=== PATIENT | female | born 1970 | race Caucasian/White ===

== ENCOUNTER 2017-08-03 10:25 | Observation (INO) | payer OTHER ==
[~2017-08-03] VITALS: Ht 157.5 cm; Wt 86.2 kg
[~2017-08-03 10:25] MED LIST: CLON1 PO; Cyclobenzaprine5 MG; DULO60; GABA300 PO; HYDR-86; IBUP600 PO; Keflex500 MG PO; LAMO25 PO; OXYACE5T PO; PANT40 PO; PRAZ2 PO; QUET25 PO; SERT100; SULTRIDS PO
[2017-08-03] MEDS ORDERED: LORA1 PO (10:59)
[2017-08-03] MEDS ORDERED: SERT100 PO (10:59)
[2017-08-03] MEDS ORDERED: TRAZ150T57 (10:59)
[2017-08-03] MEDS ORDERED: UROCIT-K15 MEQ PO (10:59)
[2017-08-03] MEDS ORDERED: FAMO20 PO (11:00)
[2017-08-03] MEDS ORDERED: HYDCHL12.5 PO (11:00)
[2017-08-03] MEDS ORDERED: ALBU90OI6 INH (11:01)
[2017-08-03] MEDS ORDERED: BUDE10.22 INH (11:01)
[2017-08-03 11:17] LABS: Bilirubin, Urine Neg (Neg); Blood, Urine 1+ (Neg); Glucose Qualitative, Urine Neg (Neg); Ketones, Urine Neg (Neg); Leukocyte Esterase, Urine 1+ (Neg); Nitrite, Urine Neg (Neg); Protein, Urine 1+ (Neg); Urobilinogen, Urine NORM (Normal)
[2017-08-03 11:24] LABS: Appearance, Urine Cloudy (Clear); Color, Urine Yellow (P-Yellow)
[2017-08-03 11:26] LABS: Bacteria Many /hpf; Red Blood Cells, Urine 0-2 /hpf (0-2); Squamous Epithelial Cells Many /hpf (Few)
[2017-08-03 11:32] LABS: BASOPHILS ABSOLUTE AUTO 0.05 K/mm3 (0.00-0.23); BASOPHILS PERCENT AUTO 1 % (0-2); EOSINOPHILS ABSOLUTE AUTO 0.11 K/mm3 (0.00-0.68); EOSINOPHILS PERCENT AUTO 1 % (0-6); Hematocrit 33.8 % (33.0-51.0); Hemoglobin 10.9 g/dL (11.5-16.0); IMMATURE GRAN ABSOLUTE AUTO 0.03 K/mm3 (0.00-0.10); IMMATURE GRAN PERCENT AUTO 0 % (0-1); LYMPHOCYTES PERCENT AUTO 24 % (21-46); MONOCYTES ABSOLUTE AUTO 0.47 K/mm3 (0.16-1.47); MONOCYTES PERCENT AUTO 6 % (4-13); Mean Corpuscular HGB 26.6 pg (26.0-34.0); Mean Corpuscular HGB Conc 32.2 g/dL (31.5-36.5); Mean Corpuscular Volume 82 fL (80-100); Mean Platelet Volume 9.4 fL (9.1-12.4); NEUTROPHILS ABSOLUTE AUTO 5.66 K/mm3 (1.96-9.15); NEUTROPHILS PERCENT AUTO 68 % (41-73); Platelet Count 361 K/mm3 (150-400); RDW Coefficient Variation 14.6 % (11.7-14.2); RDW Standard Deviation 43.3 fL (35.1-46.3); White Blood Cell Count 8.32 K/mm3 (4.00-11.30)
[2017-08-03 11:59] LABS: U Amphetamine Screen Not Detected; U Barbituate Screen Not Detected; U Benzodiazapine Screen DETECTED; U Buprenorphine Screen Not Detected; U Cannabinoids Screen Not Detected; U Cocaine Screen Not Detected; U Methadone Screen Not Detected; U Methamphetamine Screen Not Detected; U Opiates Screen DETECTED; U Oxycodone Screen Not Detected; U Phencyclidine Screen Not Detected; U Propoxyphene Screen Not Detected
[2017-08-03 12:09] LABS: Acetaminophen, Random <2.0 ug/mL (10.0-30.0); Alanine Aminotransfer (ALT/SGP 27 U/L (12-78); Albumin, Blood 3.6 g/dL (3.4-5.0); Alk Phos 102 U/L (50-136); Anion Gap 8 mmol/L (6-16); Aspartate Aminotrans (AST/SGOT 20 U/L (12-37); Bilirubin, Total 0.1 mg/dL (0.1-1.0); Blood Urea Nitrogen 14 mg/dL (8-24); Bun/Creatinine Ratio 15.2 (12.0-20.0); CO2, Blood 24 mmol/L (21-32); Calcium, Blood 8.8 mg/dL (8.5-10.1); Chloride, Blood 108 mmol/L (98-108); Creatinine, Blood 0.92 mg/dL (0.40-1.00); Ethanol (Alcohol), Blood, Med <3 mg/dL; Globulin, Blood 3.5 g/dL (2.2-4.0); Glomerular Filtration Rate >60 (60-); Glucose, Blood 94 mg/dL (70-99); Potassium, Blood 4.1 mmol/L (3.5-5.5); Salicylate <1.7 mg/dL (2.8-20.0); Sodium, Blood 140 mmol/L (136-145); Total Protein, Blood 7.1 g/dL (6.4-8.2)
[2017-08-03 12:13] LABS: Thyroid Stimulating Hormone 0.969 uIU/mL (0.360-4.800); Thyroxine (T4) 5.7 ug/dL (4.8-13.9)
[2017-08-04] MEDS ORDERED: GABA600 PO (17:57)
[2017-08-04] MEDS ORDERED: IBUP600 PO ×2 (18:01→19:18)
[2017-08-04] MEDS ORDERED: LAMO100 PO ×2 (18:02→19:16)
[2017-08-04] MEDS ORDERED: LORA.5 PO (18:03)
[2017-08-04] MEDS ORDERED: TRAZ150T57 (19:10)
[2017-08-04] MEDS ORDERED: SERT100 PO (19:10)
[2017-08-04] MEDS ORDERED: LORA1 PO (19:11)
[2017-08-04] MEDS ORDERED: Ventolin5 MG/1 ML INH (19:13)
[2017-08-04] MEDS ORDERED: HYDCHL12.5 PO (19:13)
[2017-08-04] MEDS ORDERED: BUDE10.22 INH (19:14)
[2017-08-04] MEDS ORDERED: PRAZ2 PO (19:14)
[2017-08-04] MEDS ORDERED: Cyclobenzaprine5 MG PO (19:15)
[2017-08-04] MEDS ORDERED: PANT40 PO (19:17)
[2017-08-04] MEDS ORDERED: GABA300 PO (19:17)
[2017-08-04] MEDS ORDERED: Norco 7.5-3251 EACH PO (19:18)
[2018-01-11] MEDS ORDERED: NAPR220 (12:21)
[2018-01-11] MEDS ORDERED: CLON.5 (12:22)
[2018-01-11] MEDS ORDERED: VENL150ER (12:23)
[2018-01-11] MEDS ORDERED: ALBU90OI (12:23)
== END 2017-08-05 12:00 | disposition home or self-care (01) ==
LOC: ER 10:25 → EOR 10:26
PROVIDERS: Emergency Medicine
DX: F43.10 Post-traumatic stress disorder, unspecified (principal); F40.00 Agoraphobia, unspecified; F42.9 Obsessive-compulsive disorder, unspecified; F31.9 Bipolar disorder, unspecified; F41.9 Anxiety disorder, unspecified; J45.909 Unspecified asthma, uncomplicated; M19.90 Unspecified osteoarthritis, unspecified site; M79.7 Fibromyalgia; K21.9 Gastro-esophageal reflux disease without esophagitis; G43.909 Migraine, unspecified, not intractable, without status migrainosus; Z79.899 Other long term (current) drug therapy; Z88.0 Allergy status to penicillin; Z88.8 Allergy status to other drugs, medicaments and biological substances
CPT/HCPCS: 70450; 80053; 81001; 81025; 84436; 84443; 85025; 86592; 87086; 99285; G0378; G0480

== ENCOUNTER → 2018-08-04 | Outpatient (CLI) | payer OTHER ==
[~2018-08-04] MED LIST changes: +ALBU90OI; +ALBU90OI6 INH; +BUDE10.22 INH; +CLON.5; +Cyclobenzaprine5 MG PO; +FAMO20 PO; +GABA600 PO; +HYDCHL12.5 PO; +LAMO100 PO; +LORA.5 PO; +LORA1 PO; +NAPR220; +Norco 7.5-3251 EACH PO; +SERT100 PO; +TRAZ150T57; +UROCIT-K15 MEQ PO; +VENL150ER; +Ventolin5 MG/1 ML INH
[2018-08-04 19:42] LABS: Adenovirus Not Detected (NOT DETECT); Bordetella pertussis Not Detected (NOT DETECT); Chlamydophila pneumoniae Not Detected (NOT DETECT); Coronavirus 229E Not Detected (NOT DETECT); Coronavirus HKU1 Not Detected (NOT DETECT); Coronavirus NL63 Not Detected (NOT DETECT); Coronavirus OC43 Not Detected (NOT DETECT); Human Metapneumovirus Not Detected (NOT DETECT); Human Rhinovirus/Enterovirus Not Detected (NOT DETECT); Influenza A Not Detected (NOT DETECT); Influenza A/2009-H1 Not Detected (NOT DETECT); Influenza A/H1 Not Detected (NOT DETECT); Influenza A/H3 Not Detected (NOT DETECT); Influenza B Not Detected (NOT DETECT); Mycoplasma pneumoniae Not Detected (NOT DETECT); Parainfluenza Virus 1 Not Detected (NOT DETECT); Parainfluenza Virus 2 Not Detected (NOT DETECT); Parainfluenza Virus 3 Not Detected (NOT DETECT); Parainfluenza Virus 4 Not Detected (NOT DETECT); Respiratory Syncytial Virus Not Detected (NOT DETECT)
== END | disposition home or self-care (01) ==
LOC: LAB SHORT 10:05 → LAB 10:05
DX: J45.909 Unspecified asthma, uncomplicated (principal)
CPT/HCPCS: 87486; 87581; 87633; 87798; 87807

== ENCOUNTER 2019-05-02 07:11 | Day surgery (SDC) | payer MEDICARE ==
[~2019-05-02] VITALS: Ht 160 cm; Wt 89.9 kg
[~2019-05-02 07:11] MED LIST changes: -ALBU90OI; +ALBU90OI INH; +ARIPIPRAZOLE5 MG PO; +BENZ100A PO; -CLON.5; +CLON.5 PO; +FLUT1DIS5 INH; +IBUP400 PO; +MIRALAX17 GM PO; +NAPR220 PO; +PRAVASTATIN SOD10 MG PO; +PROM25 PO; +TRAZ150T57 PO; -VENL150ER; +VENL150ER PO; -Ventolin5 MG/1 ML INH; +Ventolin5 MG/1 ML NEB
--- NOTE | 2019-05-02 08:17 | NUR ---
History, Chart, Medications and Allergies reviewed before start of procedure. Patient confirms NPO status and agrees with scheduled surgery. Lungs clear T/O to Auscultation. Patient reports completing Chlorhexadine shower X2 prior to admission to hospital. Patient States Post-Procedure ride home has been arranged. Pre-Op teaching done. Pt verbalizes understanding. PATIENT HAS NO JEWELRY PRESENT AT ADMIT, GLASSES ONLY, NO DENTURES PRESENT, NO CONTACTS, NO HEARING DEVICES PRESENT.
--- NOTE | 2019-05-02 08:30 | NUR ---
PER DR JOSHI, WILL PROCEED WITH [facility], AWARE OF PCN ALLERGY.
--- NOTE | 2019-05-02 08:34 | NUR ---
REPORT TO AIDA WALLIS RN.
--- NOTE | 2019-05-02 08:38 | NUR ---
PER DR OCONNOR, DEFER HCG TESTING FOR THIS PATIENT.
--- NOTE | 2019-05-02 10:57 | NUR ---
PT REPORT FROM ERNA MARCOS RN. STERI STRIPS X3 CDI.
--- NOTE | 2019-05-02 11:30 | NUR ---
Patient up to Ambulate independently. Gait steady. Discharge instructions reviewed with patient. Patient verbalizes understanding. Copy given to patient to take home. Patient States Post-Procedure ride home has been arranged. Discharged via wheelchair to private car for ride home. STERI STRIPS REMAINED CDI. PT BATSHEVA RETURNED TO PATIENT.
== END 2019-05-02 23:37 | disposition home or self-care (01) ==
LOC: ORSCMMR 07:11 → ORD 08:45 → ORSCMMR 08:45
PROVIDERS: Surgery
PROC: BF031ZZ Plain Radiography of Gallbladder and Bile Ducts using Low Osmolar Contrast (ICD-10-PCS; principal; 2019-05-02 08:45)
PROC: 0FT44ZZ Resection of Gallbladder, Percutaneous Endoscopic Approach (ICD-10-PCS; principal; 2019-05-02 08:45)
DX: K80.10 Calculus of gallbladder with chronic cholecystitis without obstruction (principal); K21.9 Gastro-esophageal reflux disease without esophagitis; J45.909 Unspecified asthma, uncomplicated; F31.9 Bipolar disorder, unspecified; Z79.899 Other long term (current) drug therapy; E66.01 Morbid (severe) obesity due to excess calories; Z68.36 Body mass index [BMI] 36.0-36.9, adult
CPT/HCPCS: 74300; 88304; A9270-GY; C1729; J0690; J1100; J1885; J2250; J2405; J2704; J2710; J3010; J7120

== ENCOUNTER → 2019-08-01 | Outpatient (CLI) | payer MEDICARE, SELFPAY ==
[2019-08-01 19:09] LABS: U Amphetamine Screen Not Detected; U Barbituate Screen Not Detected; U Benzodiazapine Screen Not Detected; U Buprenorphine Screen Not Detected; U Cannabinoids Screen Not Detected; U Cocaine Screen Not Detected; U Methadone Screen Not Detected; U Methamphetamine Screen Not Detected; U Opiates Screen Not Detected; U Oxycodone Screen Not Detected; U Phencyclidine Screen DETECTED; U Propoxyphene Screen Not Detected
== END | disposition home or self-care (01) ==
LOC: LAB 14:30 → LAB SHORT 14:30
PROVIDERS: Nurse Practitioner Family
DX: Z51.81 Encounter for therapeutic drug level monitoring (principal); Z79.899 Other long term (current) drug therapy

== ENCOUNTER → 2019-09-27 | Outpatient (CLI) | payer MEDICARE, SELFPAY ==
[2019-09-27 15:03] LABS: U Amphetamine Screen Not Detected; U Barbituate Screen Not Detected; U Benzodiazapine Screen Not Detected; U Buprenorphine Screen Not Detected; U Cannabinoids Screen DETECTED; U Cocaine Screen Not Detected; U Methadone Screen Not Detected; U Methamphetamine Screen Not Detected; U Opiates Screen Not Detected; U Oxycodone Screen Not Detected; U Phencyclidine Screen DETECTED; U Propoxyphene Screen Not Detected
== END | disposition home or self-care (01) ==
LOC: LAB 12:35 → LAB SHORT 12:35
PROVIDERS: Nurse Practitioner Family
DX: Z51.81 Encounter for therapeutic drug level monitoring (principal); Z79.891 Long term (current) use of opiate analgesic
CPT/HCPCS: G0480

== ENCOUNTER → 2019-10-24 | Outpatient (CLI) | payer MEDICARE, SELFPAY ==
[2019-10-24 18:36] LABS: U Amphetamine Screen Not Detected; U Barbituate Screen Not Detected; U Benzodiazapine Screen Not Detected; U Cocaine Screen Not Detected; U Methadone Screen Not Detected; U Methamphetamine Screen Not Detected; U Opiates Screen Not Detected; U Phencyclidine Screen DETECTED
[2019-10-24 18:37] LABS: U Buprenorphine Screen Not Detected; U Cannabinoids Screen Not Detected; U Oxycodone Screen Not Detected; U Propoxyphene Screen Not Detected
== END | disposition home or self-care (01) ==
LOC: LAB 17:14 → LAB SHORT 17:14
PROVIDERS: Nurse Practitioner Family
DX: Z51.81 Encounter for therapeutic drug level monitoring (principal); Z79.891 Long term (current) use of opiate analgesic
CPT/HCPCS: G0480

== ENCOUNTER → 2020-05-13 | Outpatient (CLI) | payer MEDICARE ==
[2020-05-14 10:26] LABS: Candida species (DNA Probe) Negative (NEGATIVE); G. vaginalis (DNA Probe) Positive (NEGATIVE); T. vaginalis (DNA Probe) Negative (NEGATIVE)
[2020-05-15 03:09] LABS: CHLAMYDIA TRACHOMATIS, NAA Negative (Negative); HPV 16 Negative (Negative); HPV 18 Negative (Negative); HPV OTHER HR TYPES Negative (Negative)
== END ==
LOC: LAB SHORT 13:59 → LAB 13:59
PROVIDERS: Advanced Practice Midwife
DX: Z01.419 Encounter for gynecological examination (general) (routine) without abnormal findings (principal); Z11.3 Encounter for screening for infections with a predominantly sexual mode of transmission; N76.0 Acute vaginitis
CPT/HCPCS: 87480; 87491; 87510; 87591; 87624; 87660; G0123

== ENCOUNTER 2023-02-14 08:22 | Day surgery (SDC) | payer OTHER ==
[~2023-02-14] VITALS: Ht 157.5 cm; Wt 109.9 kg
[2023-02-14 10:44] VITALS: BP 116/64
--- NOTE | 2023-02-14 10:45 | NUR ---
02/14/23 1045 Ioana Benitez IV DC'D CATH INTACT. PT TOLERATED WELL. COBAN/GAUZE IN PLACE
== END 2023-02-14 10:45 | disposition home or self-care (01) ==
LOC: ORSCSDS 08:22
PROVIDERS: Internal Medicine Gastroenterology
PROC: 0DBM8ZX Excision of Descending Colon, Via Natural or Artificial Opening Endoscopic, Diagnostic (ICD-10-PCS; principal; 2023-02-14 09:45)
DX: K59.09 Other constipation (principal); D12.4 Benign neoplasm of descending colon; K57.30 Diverticulosis of large intestine without perforation or abscess without bleeding; J45.909 Unspecified asthma, uncomplicated; F43.10 Post-traumatic stress disorder, unspecified; F31.9 Bipolar disorder, unspecified; M79.7 Fibromyalgia; E78.5 Hyperlipidemia, unspecified; Z79.899 Other long term (current) drug therapy; E66.01 Morbid (severe) obesity due to excess calories; Z68.41 Body mass index [BMI] 40.0-44.9, adult
CPT/HCPCS: 88305; J2704; J7120